=== PATIENT | male | born 1935 | race Caucasian/White ===

== ENCOUNTER 2016-11-21 08:55 | Emergency (ER) | payer MEDICARE ==
--- NOTE | ~2016-11-21 | CR181 ---
[facility] A Service of [facility] & [facility] RADIOLOGY TEXT RESULTS PATIENT: LISS JENSEN LOCATION: SED : 35 UNIT #: [id number] AGE: [address]: Elijah Ha MD SEX: M ORDER DR: [id number] [address] [address] [id number] E MR#: [id number] Acc #: [id number] NAME: LISS JENSEN : 1935 SEX: M STUDY DATE/TIME: 11/21/2016 10:12 UNIT: SED ROOM: STUDY DESCRIPTION: CR Lumbar Spine 2 or 3 Views Attending Physician: Elijah Ha M.D. Ordering Physician: Elijah Ha M.D. Primary Care Physician: Carlos Brar M.D. MEDICAL IMAGING REPORT This report is preliminary unless electronic signature is present. EXAM Lumbosacral spine HISTORY Low back pain for 3 months. FINDINGS AP lateral and spot views are submitted. Examination shows disc space narrowing at L3-4, 4-5 and 5-1. There is advanced facet disease throughout the lumbar spine but in particular at L4-5 and L5-S1. No fractures or malalignment is seen. There is dense atherosclerotic calcification of the aorta with an infrarenal abdominal aortic aneurysm measuring at least 5.9 cm. Review of the patient's ultrasound from 11/21/2016 suggests the aneurysm measures 4.4 cm in greatest diameter. CONCLUSION 1. 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 Advanced facet disease throughout the lumbar spine particularly at 4-5 and 5-1. 2. Infrarenal abdominal aortic aneurysm measures 5.9 cm on the plain radiographs however this may be not the most accurate way to assess the aneurysm. Recent ultrasound study suggests it measures about 4.4 cm. Dictated by... Simone Meeks M.D. THIS IS AN ELECTRONICALLY VERIFIED REPORT Simone Meeks M.D. at 11/21/2016 4:52 PM SOCORRO/jayden TD: 11/21/2016 10:47 JOB #: [id number] [facility] A Service of [facility] & [facility] RADIOLOGY TEXT RESULTS PATIENT: LISS JENSEN LOCATION: SED : 35 UNIT #: [id number] AGE: [address]: Elijah Ha MD SEX: M ORDER DR: MEDICAL IMAGING REPORT Page 1 of 1
[~2016-11-21 08:55] MED LIST changes: -ASPIRIN81 M2 PO; -AZO STANDARD97.5 MG PO; -BENAZEPRIL HCL40 MG PO; -DURAGESIC1 EAC1 TD; -FLOMAX0.4 M1 PO; -LIPITOR20 MG PO; -MACROBID100 M1 PO; -METOPROLOL SUCC50 MG PO; -MIRALAX17 GM PO; -NITROGLYGERIN0.4 MG SL; -NORCO 7.5-3251 EACH PO; -PEPCID COMPLET1 EAC1 PO; -PREPARATION H1 EAC1 TOP; -XANAX0.5 M1 PO; -ZOFRAN ODT4 M1 PO
[2016-11-21 09:37] LABS: URINE SOURCE CLEAN CATCH
[2016-11-21 09:40] LABS: URINE APPEARANCE CLEAR; URINE BILIRUBIN NEG (NEG); URINE BLOOD 2+ (NEG); URINE COLOR YELLOW; URINE GLUCOSE NEG (NORM); URINE KETONE NEG (NEG); URINE LEUKOCYTE ESTERASE NEG (NEG); URINE NITRATE NEG (NEG); URINE PH 5.5 (5-8); URINE PROTEIN NEG (NEG); URINE UROBILINOGEN 0.2 MG/DL (NORM)
[2016-11-21 09:41] LABS: MICRO INDICATED? YES
[2016-11-21 10:04] LABS: CULTURE INDICATED? NO; URINE BACTERIA NEG (NEG); URINE WBC 0-2 /[HPF] (0-5)
== END 2016-11-21 11:07 | disposition home or self-care (01) ==
LOC: SED 08:55
PROVIDERS: Emergency Medicine
DX: S39.012A Strain of muscle, fascia and tendon of lower back, initial encounter (principal); R31.9 Hematuria, unspecified; I10 Essential (primary) hypertension; E78.5 Hyperlipidemia, unspecified; Z95.1 Presence of aortocoronary bypass graft; Z88.8 Allergy status to other drugs, medicaments and biological substances; X58.XXXA Exposure to other specified factors, initial encounter; Y92.9 Unspecified place or not applicable
CPT/HCPCS: 72100; 81003; 99283

== ENCOUNTER → 2016-11-21 | Outpatient (CLI) | payer MEDICARE ==
[~2016-11-21] MED LIST: ASPIRIN PO; ASPIRIN81 M2 PO; AZO STANDARD97.5 MG PO; BENAZEPRIL HCL40 MG PO; DEXFOL PO; DURAGESIC1 EAC1 TD; FLOMAX0.4 M1 PO; LIPITOR PO; LIPITOR20 MG PO; LORTAB 7.5-5001 TAB PO; MACROBID100 M1 PO; METOPROLOL SUCC50 MG PO; MIRALAX17 GM PO; NITROGLYGERIN0.4 MG SL; NORCO 7.5-3251 EACH PO; NORVASC PO; PEPCID COMPLET1 EAC1 PO; PREPARATION H1 EAC1 TOP; TOPROL XL PO; VIT B-12 PO; VIT E PO; VITAMIN B; VITAMIN C PO; VITAMIN E; XANAX0.5 M1 PO; ZOFRAN ODT4 M1 PO
--- NOTE | ~2016-11-21 | US11 ---
[facility] A Service [facility] RADIOLOGY TEXT RESULTS PATIENT: LISS JENSEN LOCATION: [facility] : 35 UNIT #: [id number] AGE: [address]: Carlos Brar MD SEX: M ORDER DR: [id number] [place] [id number] P MR#: [id number] Acc #: [id number] NAME: LISS JENSEN : 1935 SEX: M STUDY DATE/TIME: 11/21/2016 8:16 UNIT: [facility] ROOM: STUDY DESCRIPTION: US Aorta Duplex Complete Attending Physician: Carlos Brar M.D. Referring Physician: Carlos Brar M.D. Ordering Physician: Carlos Brar M.D. Primary Care Physician: Carlos Brar M.D. MEDICAL IMAGING REPORT This report is preliminary unless electronic signature is present. EXAM Abdominal aorta ultrasound 11/21/2016 INDICATION Abdominal aortic aneurysm without rupture. Aneurysm for 15 years. No history of surgical intervention. Bypass surgery 10 years ago. TECHNIQUE Gama-scale color Doppler spectral analysis of the aorta was performed. COMPARISON 11/02/2015 FINDINGS There is an abdominal aortic aneurysm involving the distal aspect of the aorta. On long axis views it measures up to 4.4 cm maximum diameter which is essentially unchanged from the prior study. The remainder of the aorta demonstrates no evidence of aneurysmal dilatation. Visualized common iliac arteries unremarkable. Appropriate waveforms are present within the aorta. IMPRESSION 1. Aneurysmal dilatation of the distal abdominal aorta up to 4.4 cm which is unchanged from the prior 2015 study. The aneurysm measured up to about 3.4 cm on a more distant study dated 08/26/2010. Dictated by... Elijah Marie M.D. THIS IS AN ELECTRONICALLY VERIFIED REPORT Elijah Marie M.D. at 11/21/2016 11:51 AM [facility] A Service [facility] RADIOLOGY TEXT RESULTS PATIENT: LISS JENSEN LOCATION: [facility] #: [id number] : 35 UNIT #: [id number] AGE: [address]: Carlos Brar MD SEX: M ORDER DR: GAURANG/brenda TD: 11/21/2016 09:51 JOB #: [id number] MEDICAL IMAGING REPORT Page 1 of 1
== END | disposition home or self-care (01) ==
LOC: SGUS 07:50
DX: I71.4 Abdominal aortic aneurysm, without rupture (principal)
CPT/HCPCS: 93978

== ENCOUNTER 2017-01-14 10:17 | Emergency (ER) | payer MEDICARE, BC ==
--- NOTE | ~2017-01-14 | EKG ---
PATIENT: LISS JENSEN UNIT #: [id number] Ventricular Rate: 77 BPM Atrial Rate: 77 BPM P-R Interval: 160 ms QRS Duration: 100 ms Q-T Interval: 404 ms QTC Calculation(Bezet): 457 ms P [place]: 0 degrees Calculated R [place]: 36 degrees Calculated T [place]: 101 degrees Diagnosis Line: Sinus rhythm with occasional Premature ventricular Diagnosis Line: complexes Diagnosis Line: Possible Anterior infarct (cited on or before Diagnosis Line: 14-JAN-2017) Diagnosis Line: Abnormal ECG Diagnosis Line: When compared with ECG of 01-JUN-2009 21:45, Diagnosis Line: Premature ventricular complexes are now Present Diagnosis Line: Nonspecific T wave abnormality now evident in Diagnosis Line: Inferior leads Diagnosis Line: Confirmed by LAMONT ALEXANDER MD ([id number]) on Diagnosis Line: 01/18/2017 8:30:13 AM INTERPRETING MD: CATHERINE HUDDLESTON
--- NOTE | ~2017-01-14 | CT4 ---
[facility]. [facility] A Service of [facility] & [facility] RADIOLOGY TEXT RESULTS PATIENT: LISS JENSEN LOCATION: SED : 35 UNIT #: [id number] AGE: [address]: Franklin Collins MD SEX: M ORDER DR: [id number] [address] [address] [id number] E MR#: [id number] Acc #: [id number] NAME: LISS JENSEN : 1935 SEX: M STUDY DATE/TIME: 01/14/2017 11:45 UNIT: SED ROOM: STUDY DESCRIPTION: CT Abd and Pelv Wo Cont Attending Physician: Franklin Collins M.D. Ordering Physician: Franklin Collins M.D. Primary Care Physician: Carlos Brar M.D. MEDICAL IMAGING REPORT This report is preliminary unless electronic signature is present. EXAM CT abdomen and pelvis without IV contrast COMPARISON June 02, 2009. HISTORY 82-year-old male with the right groin pain and bilateral hip pain for [address] imaging abdomen and pelvis was performed without IV contrast. Coronal and sagittal reformats were constructed. Lack of IV contrast limits evaluation of adenopathy, vasculature and viscera. This CT exam was performed with one or more of the following radiation dose reduction techniques: automatic exposure control, adjustment of mA and/or kV according to patient size, and iterative reconstruction. FINDINGS Mild diffuse osteopenia. Severe degenerative facet disease L5-S1. There are new osseous sclerotic lesions. There is patchy sclerosis seen throughout the lumbar spine as well as at T12. There is contour irregularity along the anterior aspect of the sacrum and S1 and there is depression of the S1 endplate, possibly reflecting a pathologic fracture. Findings are most consistent with diffuse metastatic disease. There is also note of patchy sclerosis within the proximal femurs and the remainder of the bony pelvis. There is dextroscoliosis of the lumbar spine. There is moderate emphysema. Stable large bulla in the right lower lobe. Wall thickness may have increased slightly, perhaps superimposed inflammation or infection in the right lower lobe. There are multiple new STS. [facility] A Service of [facility] & [facility] RADIOLOGY TEXT RESULTS PATIENT: LISS JENSEN LOCATION: SED : 35 UNIT #: [id number] AGE: [address]: Franklin Collins MD SEX: M ORDER DR: pulmonary nodules, measuring 8 mm in the left lower lobe with a separate 9 mm nodule the left lower lobe. There are 3 other smaller nodules in the left lower lobe. These findings are most consistent with metastatic disease. There is another 4 mm nodule in the posterior basilar segment of the left lower lobe with 3 other nodules seen at the posterior basilar segment left lower lobe and a separate left lower lobe nodule measuring 5 mm. Largest nodule seen at the left lung measures up to 1.2 cm in the posterior basilar segment left lower lobe. Incompletely imaged subcentimeter nodular densities are seen in the right lower lobe. There is a small left pleural effusion, possibly malignant. Coronary artery calcifications. Apparent hiatal hernia which appears somewhat mass-like. Gastric or distal esophageal mass lesion cannot be excluded given findings elsewhere. This appears to be a change in appearance of the hiatal hernia from 2008. Prior cholecystectomy is noted. Unenhanced liver, spleen and adrenal glands are unremarkable. There is mild atrophy of the pancreas. There is exophytic cyst versus angiomyolipoma in the inferior pole of the right kidney measuring up to 1.7 cm. No hydronephrosis or hydroureter. No renal or ureteral calculi. Urinary bladder is under distended but the bladder wall appears diffusely thickened and there is adjacent fat stranding. Acute cystitis cannot be excluded. Prostate gland measures up to 4.2 cm transverse. There is distension of the seminal vesicles bilaterally. There is diffuse calcification of the abdominal aorta with extension to involve the celiac and superior mesenteric arteries as well as the origins of the renal arteries. There is a large infrarenal saccular abdominal aortic aneurysm measuring up to 4.6 cm, increased from a maximum of 3.7 cm in 2008. There is extensive colonic diverticulosis without convincing evidence of acute diverticulitis. No evidence of acute appendicitis. No bowel obstruction. No free fluid or pneumoperitoneum. There is a 7 mm right pelvic sidewall lymph node which was not seen previously, as well as a separate 8 mm left pelvic sidewall lymph node. Haziness of the fat adjacent to the urinary bladder may not be significantly changed from 2009. No adenopathy by CT size criteria. IMPRESSION 1. Diffuse, new, focal, patchy sclerosis of the imaged spine and of the bony pelvis and proximal femurs, highly suspicious for metastatic disease. There is questionable acute or subacute pathologic fracture of the S1 segment of the sacrum. 2. Hiatal hernia is again noted but at the gastroesophageal junction, there does appear to be new marked nonspecific thickening. This could certainly represent fluid distension of the distal esophagus or the herniated stomach but malignancy in this location cannot be excluded. There are multiple pulmonary nodules in the left lower lobe, new from comparison, largest which measures up to 1.2 cm, most consistent with metastatic disease. There is a small left pleural effusion, possibly malignant. 3. Emphysema. There is a bulla in the right lower lobe, grossly STS. [facility] A Service of [facility] RADIOLOGY TEXT RESULTS PATIENT: LISS JENSEN [place] [facility] [place] 35 UNIT #: [id number] AGE: [address]: Franklin Collins MD SEX: M ORDER DR: stable in size from 2008 with increased mild diffuse wall thickening, perhaps reflecting superimposed inflammation. There are few incompletely image nodules which are subcentimeter in size in the right lower lobe, also concerning for metastatic disease. 4. Extensive colonic diverticulosis without evidence of acute diverticulitis. 5. Enlarging infrarenal abdominal aortic aneurysm measuring up to 4.6 cm. At the very least, imaging followup is recommended in 6-12 months. Non-emergent vascular surgical consultation could be considered. 6. Diffuse arterial calcification in the abdomen and pelvis. 7. Mild fat stranding adjacent to the urinary bladder which appears mildly thickened. An acute cystitis cannot entirely be excluded. This may simply be due to under distension. There are prominent pelvic sidewall lymph nodes bilaterally which appear new, 1 of which measures up to 8 mm, the other which measures up to 7 mm. Metastatic disease cannot be excluded. Consider correlation with PSA given the location of the nodes. Dictated by... Jose Angel Woo M.D. THIS IS AN ELECTRONICALLY VERIFIED REPORT Jose Angel Woo M.D. at 01/23/2017 8:11 AM BLM/pcl TD: 01/14/2017 13:55 JOB #: [id number] MEDICAL IMAGING REPORT Page 1 of 1
[2017-01-14] MEDS ORDERED: MACROBID100 M1 PO (10:27)
[2017-01-14] MEDS ORDERED: METOPROLOL SUCC50 MG PO (10:28)
[2017-01-14] MEDS ORDERED: LIPITOR20 MG PO (10:28)
[2017-01-14] MEDS ORDERED: BENAZEPRIL HCL40 MG PO (10:28)
[2017-01-14] MEDS ORDERED: ASPIRIN81 M2 PO (10:29)
[2017-01-14 11:22] LABS: BASOPHIL% 0.6 % (0-2.5); EOSINOPHIL% 0.7 % (0.0-7.0); HEMOGLOBIN 10.5 gm/dL (13.0-16.0); LYMPHOCYTE# 0.6 X10e3 (1.0-3.5); LYMPHOCYTE% 9.7 % (17.0-45.0); MEAN CELL VOLUME 84.3 FL (83-96); MEAN CORPUSCULAR HEMOGLOBIN 27.7 PG (28-34); MEAN CORPUSCULAR HGB CONC 32.9 g/dL (30-36); MEAN PLATELET VOLUME 7.3 FL (6.5-11.5); MONOCYTE# 0.6 X10e3 (0-1.0); MONOCYTE% 9.9 % (3.0-12.0); NEUTROPHIL# 5.1 X10e3 (1.5-7.1); NEUTROPHIL% 79.1 % (40-75); PLATELET COUNT 213 X10e3 (140-420); RED CELL DISTRIBUTION WIDTH 15.2 % (11.0-15.5); WHITE BLOOD COUNT 6.5 X10e3 (4.0-10.5)
[2017-01-14 11:28] LABS: DIFF IND NO
[2017-01-14 11:31] LABS: URINE SOURCE CLEAN CATCH
[2017-01-14 11:33] LABS: URINE APPEARANCE CLEAR; URINE BLOOD 3+ (NEG); URINE COLOR AMBER; URINE GLUCOSE NEG (NORM); URINE KETONE NEG (NEG); URINE LEUKOCYTE ESTERASE NEG (NEG); URINE NITRATE NEG (NEG); URINE PROTEIN 1+ (NEG); URINE SPECIFIC GRAVITY 1.025 (1.003-1.035)
[2017-01-14 11:39] LABS: BUN/CREATININE RATIO 17.69; CALCIUM SERUM 8.3 mg/dL (8.4-10.2); CREATININE SERUM 1.3 mg/dL (0.6-1.4); GLOM FILT RATE Estimated 50.8 mL/min (>60); POTASSIUM 3.7 mmol/L (3.5-5.1)
[2017-01-14 11:39] LABS: MICRO INDICATED? YES; URINE BILIRUBIN NEG (NEG)
[2017-01-14 11:45] LABS: CULTURE INDICATED? NO; URINE BACTERIA NEG (NEG)
[2017-01-14 12:43] LABS: POC - CKMB 1.5 ng/mL (0.0-7.9); POC - TROPONIN <0.05 ng/mL (<=0.05)
== END 2017-01-14 14:07 | disposition home or self-care (01) ==
LOC: SED 10:17
PROVIDERS: Emergency Medicine
DX: S32.10XA Unspecified fracture of sacrum, initial encounter for closed fracture (principal); R31.9 Hematuria, unspecified; I25.10 Atherosclerotic heart disease of native coronary artery without angina pectoris; Z91.013 Allergy to seafood; Z79.82 Long term (current) use of aspirin; Z79.899 Other long term (current) drug therapy; X58.XXXA Exposure to other specified factors, initial encounter; Y92.9 Unspecified place or not applicable
CPT/HCPCS: 36415; 74176; 80048; 81003; 82553; 84484; 85025; 93005; 99284

== ENCOUNTER → 2017-01-17 | Outpatient (CLI) | payer MEDICARE ==
[~2017-01-17] MED LIST changes: +ASPIRIN81 M2 PO; +AZO STANDARD97.5 MG PO; +BENAZEPRIL HCL40 MG PO; +DURAGESIC1 EAC1 TD; +FLOMAX0.4 M1 PO; +LIPITOR20 MG PO; +MACROBID100 M1 PO; +METOPROLOL SUCC50 MG PO; +MIRALAX17 GM PO; +NITROGLYGERIN0.4 MG SL; +NORCO 7.5-3251 EACH PO; +PEPCID COMPLET1 EAC1 PO; +PREPARATION H1 EAC1 TOP; +XANAX0.5 M1 PO; +ZOFRAN ODT4 M1 PO
--- NOTE | ~2017-01-17 | CT2 ---
[facility]. [facility] A Service of [facility] RADIOLOGY TEXT RESULTS PATIENT: LISS JENSEN LOCATION: [facility] : 35 UNIT #: [id number] AGE: [address]: Juanito Pineda MD SEX: M ORDER DR: [id number] [place] [address] [id number] O MR#: [id number] Acc #: [id number] NAME: LISS JENSEN : 1935 SEX: M STUDY DATE/TIME: 01/17/2017 8:02 UNIT: [facility] ROOM: STUDY DESCRIPTION: CT Abd and Pelv W Cont Attending Physician: Juanito Pineda M.D. Referring Physician: Juanito Pineda M.D. Ordering Physician: Juanito Pineda M.D. Primary Care Physician: Carlos Brar M.D. MEDICAL IMAGING REPORT This report is preliminary unless electronic signature is present. EXAM CT abdomen and pelvis with contrast. INDICATION Restaging bone and lung cancer. Observation for extent of disease and metastatic disease. PROCEDURE Contrast-enhanced CT abdomen and pelvis. This CT exam was performed with one or more of the following radiation dose reduction techniques: automatic exposure control, adjustment of mA and/or kV according to patient size, and iterative reconstruction. COMPARISON 01/14/2017 FINDINGS Refer to the separately dictated chest CT for thoracic findings. Small to moderate sized hiatal hernia. No liver or splenic lesion. Small bilateral renal cysts. A cyst at the lower pole of the right kidney measures 1.6 cm. Adrenal glands and pancreas unremarkable. Previous cholecystectomy. There is extensive colonic diverticulosis without definitive evidence for complication. Moderate colonic stool. The bowel loops are nondilated. Infrarenal abdominal aortic aneurysm measures up to 4.5 cm. PELVIS WITH CONTRAST: Prostate gland is normal in size. There is some STS. [facility] A Service of [facility] RADIOLOGY TEXT RESULTS PATIENT: LISS JENSEN LOCATION: [facility] : 35 UNIT #: [id number] AGE: [address]: Juanito Pineda MD SEX: M ORDER DR: nodularity projecting into the bladder base measuring 3.2 cm. This probably represents protrusion of the prostate gland but a true bladder mass is difficult to exclude. There is also nonspecific high-attenuation seen in the distal right ureter. This was not seen on the patient's unenhanced CT from 01/14/2017. Mildly prominent 1.3 cm, right external iliac lymph node. Scattered areas of sclerosis throughout the osseous structures. Index region in the L5 vertebral body measures 3.2 cm. IMPRESSION 1. Scattered areas of bone sclerosis suspicious for bony metastatic disease. 2. The prostate gland is normal in size but appears to indent the bladder base and there is some nodularity seen at the base of the bladder that probably represents extension of the prostate gland but cannot exclude a bladder mass. Direct visualization may be warranted. 3. Focal high attenuation in the distal right ureter not seen on the patient's previous unenhanced CT. This could represent some tiny stones or sediment. It could also represent focal enhancement. This possibility would be better evaluated with a dedicated renal protocol CT, including multiphase acquisition and delayed imaging through the ureters. 4. Nonspecific mildly prominent right external iliac lymph node. Otherwise, no convincing evidence for metastatic disease. 5. Refer to the separately dictated CT of the chest and other incidental findings are detailed above. Dictated by... Lucas Dillon M.D. THIS IS AN ELECTRONICALLY VERIFIED REPORT Lucas Dillon M.D. at 01/18/2017 2:02 PM POLLY/jerry TD: 01/17/2017 14:28 JOB #: [id number] MEDICAL IMAGING REPORT Page 1 of 1
--- NOTE | ~2017-01-17 | CT55 ---
[facility] A Service of [facility] & [facility] RADIOLOGY TEXT RESULTS PATIENT: LISS JENSEN LOCATION: [facility] : 35 UNIT #: [id number] AGE: [address]: Juanito Pineda MD SEX: M ORDER DR: [id number] [place] [address] [id number] O MR#: [id number] Acc #: [id number] NAME: LISS JENSEN : 1935 SEX: M STUDY DATE/TIME: 01/17/2017 9:26 UNIT: [facility] ROOM: STUDY DESCRIPTION: CT Chest W Con Attending Physician: Juanito Pineda M.D. Referring Physician: Juanito Pineda M.D. Ordering Physician: Juanito Pineda M.D. Primary Care Physician: Carlos Brar M.D. MEDICAL IMAGING REPORT This report is preliminary unless electronic signature is present. EXAM CT chest INDICATIONS Lung cancer staging diagnosed 2 days ago. Observation for extent of disease and metastatic disease. PROCEDURE Contrast-enhanced CT of the chest. This CT exam was performed with one or more of the following radiation dose reduction techniques: automatic control, adjustment of mA and/or kV according to patient size, and iterative reconstruction. COMPARISON None. FINDINGS ABDOMEN WITH CONTRAST: Emphysema. Scattered pleural-based calcifications, particularly in the right hemithorax. There are multiple scattered pulmonary nodules in both lungs. An index nodule in the right upper lobe measures 1.1 cm. An index nodule in the left lower lobe measures 1.2 cm. Scattered areas of parenchymal scarring. Previous CABG. Coronary artery calcification. There is a prominent pretracheal node short axis dimension 1.9 cm. A few other mildly prominent mediastinal nodes. There are scattered poorly defined sclerotic lesions throughout the osseous structures. There is an expansile lesion, posterolateral right eighth rib that measures 3.6 x 1.6 cm. There is a nondisplaced fracture of the lateral right ninth rib associated with a sclerotic lesion. No thoracic vertebral body compression. IMPRESSION 1. Multiple bilateral pulmonary nodules involving all lobes. Most in keeping with pulmonary metastatic disease. This could be metastatic STS. [facility] A Service of [facility] & [facility] RADIOLOGY TEXT RESULTS PATIENT: LISS JENSEN LOCATION: [facility] : 35 UNIT #: [id number] AGE: [address]: Juanito Pineda MD SEX: M ORDER DR: from primary lung cancer or distant metastases. 2. A few prominent mediastinal lymph nodes suspicious for mediastinal adenopathy. 3. Multiple sclerotic bone lesions with index lesions detailed above including a likely nondisplaced pathologic fracture of the lateral right ninth rib. Dictated by... Lucas Dillon M.D. THIS IS AN ELECTRONICALLY VERIFIED REPORT Lucas Dillon M.D. at 01/18/2017 2:02 PM POLLY/maryanne TD: 01/17/2017 15:16 JOB #: [id number] MEDICAL IMAGING REPORT Page 1 of 1
[2017-01-17 07:40] LABS: POC - CREATININE 1.41 mg/dL (0.64-1.27)
== END | disposition home or self-care (01) ==
LOC: SCT 07:25
PROVIDERS: Internal Medicine Medical Oncology
DX: C79.51 Secondary malignant neoplasm of bone (principal); C34.90 Malignant neoplasm of unspecified part of unspecified bronchus or lung
CPT/HCPCS: 71260; 74177; 82565; Q9967

== ENCOUNTER → 2017-03-08 | Outpatient (CLI) | payer MEDICARE, BC ==
--- NOTE | ~2017-03-08 | CT55 ---
[facility] A Service of [facility] & [facility] RADIOLOGY TEXT RESULTS PATIENT: LISS JENSEN LOCATION: [facility] : 35 UNIT #: [id number] AGE: [address]: Juanito Pineda MD SEX: M ORDER DR: [id number] [address] [address] [id number] O MR#: [id number] Acc #: [id number] NAME: LISS JENSEN : 1935 SEX: M STUDY DATE/TIME: 03/08/2017 08:36 UNIT: [facility] ROOM: STUDY DESCRIPTION: CT Chest W Con Attending Physician: Juanito Pineda M.D. Referring Physician: Juanito Pineda M.D. Ordering Physician: Juanito Pineda M.D. Primary Care Physician: Carlos Brar M.D. MEDICAL IMAGING REPORT This report is preliminary unless electronic signature is present. EXAM CT chest with contrast 03/08/2017 0836 hours HISTORY Patient for followup of bilateral pulmonary parenchymal nodules seen on CT chest 01/17/2017. Patient complains of new onset shortness of air for 3 days. Prior history of lung carcinoma. TECHNIQUE Dynamic helical CT images were obtained from the lung apices through the adrenal glands. Sagittal and coronal reconstructions were performed. Contrast was Isovue-370 70 mL IV. Total exam DLP 668 mGy-cm. This CT exam was performed with one or more of the following radiation dose reduction techniques: automatic control, adjustment of mA and/or kV according to patient size, and iterative reconstruction. FINDINGS Images through the thoracic inlet demonstrate no thyroid mass or supraclavicular adenopathy. Images through the chest demonstrate mildly enlarged mediastinal and hilar lymph nodes which are stable to slightly increased. There is a high right superior mediastinal node posterior to the subclavian artery and lateral to the esophagus on image 12 measuring 1.2 cm previously 4 mm. The precarinal lymph node is enlarged. It measures up to 1.8 x 3.3 cm previously 1.9 x 3.1 cm unchanged. There are enlarged prevascular, right hilar nodes all unchanged. There is no pericardial fluid. There is a stable hiatal hernia. Patient has developed a moderately large left and small to moderate right pleural effusions. Fluid tracks into the major fissure on the right. There is underlying emphysematous change. There are bilateral well-circumscribed noncalcified pulmonary parenchymal nodules unchanged in STS. [facility] A Service of [facility] RADIOLOGY TEXT RESULTS PATIENT: LISS JENSEN LOCATION: [facility] : 35 UNIT #: [id number] AGE: [address]: Juanito Pineda MD SEX: M ORDER DR: size and number from 01/17/2017 most consistent with metastatic disease to the lung. There is some interstitial prominence at the right lung base increased from prior study. There is thickening of the wall surrounding a preexisting air filled bleb or cavity at the right lung base with wall thickness 1.3 cm previously 0.5 cm. This could be infectious or malignant. There is overall increase in interstitial change particularly in the right lower lobe. This could represent asymmetric edema. Lymphangitic tumor is a consideration. Limited views through the upper abdomen demonstrate no definite liver lesion. There is stable thickening of the left adrenal gland. Bone window images demonstrate diffuse sclerotic bone changes of the thoracic spine slightly increased in the mid thoracic levels. There are bilateral sclerotic bone lesions consistent with metastatic disease to bone. No definite acute fracture or impending fracture. IMPRESSION 1. There are bilateral well-circumscribed noncalcified pulmonary parenchymal nodules diffusely most consistent with metastatic disease not appreciably changed from 01/17/2017. 2. Interval development of bilateral pleural effusions left greater than right. 3. There is new interstitial prominence in the right lower lobe as well as thickening surrounding a previous bleb or cavity at the right lung base. Wall thickening measures 1.3 cm previously 0.5 cm. This could represent malignant change or infectious change. No fluid is seen in the cavity. Malignant change is therefore favored. 4. There are small mediastinal and hilar lymph nodes which are slightly increased in size superiorly but unchanged in the precarinal region. 5. Diffuse sclerotic changes in the spine and ribs consistent with metastatic disease to bone. There is slightly more sclerotic change in the mid thoracic spine than on 01/17/2017 suggesting slight interval progression. Dictated by... Anushka Heart M.D. THIS IS AN ELECTRONICALLY VERIFIED REPORT Anushka Heart M.D. at 03/08/2017 8:27 PM YAHAIRA/maryanne TD: 03/08/2017 17:01 JOB #: [id number] MEDICAL IMAGING REPORT Page 1 of 1
[2017-03-08 08:51] LABS: POC - CREATININE 1.33 mg/dL (0.64-1.27)
== END | disposition home or self-care (01) ==
LOC: SCT 08:09
PROVIDERS: Internal Medicine Medical Oncology
DX: R91.8 Other nonspecific abnormal finding of lung field (principal); J90 Pleural effusion, not elsewhere classified; M89.9 Disorder of bone, unspecified
CPT/HCPCS: 71260; 82565; Q9967

== ENCOUNTER → 2017-03-13 | Outpatient (CLI) | payer MEDICARE ==
--- NOTE | ~2017-03-13 | CR71 ---
[facility] A Service of [facility] RADIOLOGY TEXT RESULTS PATIENT: LISS JENSEN [facility] UNIT #: [id number] AGE: [address]: Juanito Pineda MD SEX: M ORDER DR: [id number] [facility] [address] [place], [place] [address] [id number] O MR#: [id number] Acc #: [id number] NAME: LISS JENSEN : 1935 SEX: M STUDY DATE/TIME: 03/13/2017 8:20 UNIT: [facility] ROOM: STUDY DESCRIPTION: CR Chest Single View Attending Physician: Juanito Pineda M.D. Referring Physician: Juanito Pineda M.D. Ordering Physician: Luis Daniel Diaz M.D. Primary Care Physician: Carlos Brar M.D. MEDICAL IMAGING REPORT This report is preliminary unless electronic signature is present EXAM Portable chest, 1 view, 03/13/2017. HISTORY Status post left thoracentesis for left pleural effusion. FINDINGS Resolved left effusion and no pneumothorax. Chronic changes in the right mid and lower lung and pulmonary hyperexpansion suggesting COPD redemonstrated. Prior sternotomy and bypass. Again, no pneumothorax. Dictated by... Luis Daniel Diaz M.D. THIS IS AN ELECTRONICALLY VERIFIED REPORT Luis Daniel Diaz M.D. at 03/17/2017 4:54 PM TEV/tmw TD: 03/13/2017 11:42 JOB #: [id number] MEDICAL IMAGING REPORT Page 1 of 1 COPY
--- NOTE | ~2017-03-13 | XA203 ---
[facility] A Service of [facility] RADIOLOGY TEXT RESULTS PATIENT: LISS JENSEN LOCATION: [facility] : 35 UNIT #: [id number] AGE: [address]: Juanito Pineda MD SEX: M ORDER DR: [id number] [facility] [address]. [place], [place] [address] [id number] O MR#: [id number] Acc #: [id number] NAME: LISS JENSEN : 1935 SEX: M STUDY DATE/TIME: 03/13/2017 7:53 UNIT: [facility] ROOM: STUDY DESCRIPTION: XA Thoracentesis Attending Physician: Juanito Pineda M.D. Referring Physician: Juanito Pineda M.D. Ordering Physician: Juanito Pineda M.D. Primary Care Physician: Carlos Brar M.D. MEDICAL IMAGING REPORT This report is preliminary unless electronic signature is present EXAM Ultrasound guided left thoracentesis. HISTORY Left pleural effusion. PROCEDURE Informed consent was obtained. A skin site was selected with ultrasound guidance and marked, sterilely prepped and draped and locally anesthetized. Left thoracentesis was performed with a RhinoCyteeh needle catheter and 1100 mL of fluid was removed and sent for testing as requested. There were no complications. IMPRESSION Successful ultrasound guided left thoracentesis with removal of 1100 mL of fluid without complication. Dictated by... Luis Daniel Diaz M.D. THIS IS AN ELECTRONICALLY VERIFIED REPORT Luis Daniel Diaz M.D. at 03/17/2017 4:52 PM TEV/pc TD: 03/14/2017 12:05 JOB #: [id number] MEDICAL IMAGING REPORT Page 1 of 1 COPY
[2017-03-13 07:37] LABS: HEMATOCRIT 33.2 % (38.0-50.0); HEMOGLOBIN 10.9 gm/dL (13.0-16.0); MEAN CELL VOLUME 84.8 FL (83-96); MEAN CORPUSCULAR HEMOGLOBIN 27.8 PG (28-34); MEAN CORPUSCULAR HGB CONC 32.8 g/dL (30-36); MEAN PLATELET VOLUME 6.7 FL (6.5-11.5); RED BLOOD COUNT 3.92 X10e (3.90-5.60); RED CELL DISTRIBUTION WIDTH 17.4 % (11.0-15.5); WHITE BLOOD COUNT 6.1 X10e3 (4.0-10.5)
[2017-03-13 07:51] LABS: PARTIAL THROMBOPLASTIN TIME 24.5 SECONDS (23.5-31.3); PROTHROMBIN TIME (PATIENT) 11.1 SECONDS (10.0-11.7)
== END | disposition home or self-care (01) ==
LOC: CIVR 07:03
PROVIDERS: Internal Medicine Medical Oncology
PROC: 0W9B3ZZ Drainage of Left Pleural Cavity, Percutaneous Approach (ICD-10-PCS; principal; 2017-03-13)
DX: J90 Pleural effusion, not elsewhere classified (principal); J98.4 Other disorders of lung; Z98.890 Other specified postprocedural states
CPT/HCPCS: 36415; 71010; 85027; 85610; 85730; 87070; 87205; 88108; 88305

== ENCOUNTER 2017-04-16 00:18 | Emergency (ER) | payer MEDICARE ==
[~2017-04-16] VITALS: Ht 180.3 cm; Wt 77.1 kg
--- NOTE | ~2017-04-16 | CR72 ---
[facility] A Service of [facility] RADIOLOGY TEXT RESULTS PATIENT: LISS JENSEN LOCATION: SED : 35 UNIT #: [id number] AGE: [address]: Naun Rice DO SEX: M ORDER DR: [id number] [place] [address] [id number] E MR#: [id number] Acc #: [id number] NAME: LISS JENSEN : 1935 SEX: M STUDY DATE/TIME: 04/16/2017 1:30 UNIT: SED ROOM: STUDY DESCRIPTION: CR Chest Single View Portable Attending Physician: Naun Rice D.O.. Ordering Physician: Naun Rice D.O.. Primary Care Physician: Carlos Brar M.D. MEDICAL IMAGING REPORT This report is preliminary unless electronic signature is present. EXAM Chest x-ray, 04/16/2017 HISTORY 82-year-old male with history of metastatic lung cancer presenting to the ED complaining of 1-month history of worsening shortness of air. He also notes diaphoresis and some abdomen pain. TECHNIQUE AP portable upright chest x-ray. COMPARISON CT chest 03/08/2017. Chest x-ray 03/23/2017. FINDINGS There has been very little change since the previous study of 03/23/2017. Scattered pulmonary nodularity in this patient with known metastatic lung cancer. Small bilateral pleural effusion, slightly enlarged on the left. Chronic calcific pleural thickening surrounding right mid and lower lung. Pulmonary emphysema. Prior CABG surgery. IMPRESSION Pulmonary the semen with scattered pulmonary nodularity and small bilateral pleural effusions, unchanged since 03/23/2017. Dictated by... Diego Hawkins M.D. THIS IS AN ELECTRONICALLY VERIFIED REPORT [facility] A Service [facility] RADIOLOGY TEXT RESULTS PATIENT: LISS JENSEN LOCATION: SED : 35 UNIT #: [id number] AGE: [address]: Naun Rice DO SEX: M ORDER DR: Diego Hawkins M.D. at 04/17/2017 6:02 AM KEKE/harriett TD: 04/17/2017 02:08 JOB #: [id number] MEDICAL IMAGING REPORT Page 1 of 1
--- NOTE | ~2017-04-16 | EKG ---
PATIENT: LISS JENSEN UNIT #: [id number] Ventricular Rate: 66 BPM Atrial Rate: 66 BPM P-R Interval: 142 ms QRS Duration: 96 ms Q-T Interval: 420 ms QTC Calculation(Bezet): 440 ms P [place]: 15 degrees Calculated R [place]: 23 degrees Calculated T [place]: -6 degrees Diagnosis Line: Normal sinus rhythm Diagnosis Line: Cannot rule out Anterior infarct (cited on or Diagnosis Line: before 14-JAN-2017) Diagnosis Line: Abnormal ECG Diagnosis Line: When compared with ECG of 14-JAN-2017 11:53, Diagnosis Line: Premature ventricular complexes are no longer Diagnosis Line: Present Diagnosis Line: Confirmed by LAMONT ALEXANDER MD ([id number]) on Diagnosis Line: 04/19/2017 11:17:49 AM INTERPRETING MD: CATHERINE HUDDLESTON
[~2017-04-16 00:18] MED LIST changes: -AZO STANDARD97.5 MG PO; -DURAGESIC1 EAC1 TD; -FLOMAX0.4 M1 PO; -MIRALAX17 GM PO; -NITROGLYGERIN0.4 MG SL; -NORCO 7.5-3251 EACH PO; -PEPCID COMPLET1 EAC1 PO; -PREPARATION H1 EAC1 TOP; -XANAX0.5 M1 PO; -ZOFRAN ODT4 M1 PO
[2017-04-16] MEDS ORDERED: XANAX0.5 M1 PO (00:26)
[2017-04-16] MEDS ORDERED: FLOMAX0.4 M1 PO (00:26)
[2017-04-16] MEDS ORDERED: ZOFRAN ODT4 M1 PO (00:27)
[2017-04-16] MEDS ORDERED: DURAGESIC1 EAC1 TD (00:27)
[2017-04-16] MEDS ORDERED: PEPCID COMPLET1 EAC1 PO (00:28)
[2017-04-16] MEDS ORDERED: NORCO 7.5-3251 EACH PO (00:28)
[2017-04-16] MEDS ORDERED: NITROGLYGERIN0.4 MG SL (00:28)
[2017-04-16] MEDS ORDERED: AZO STANDARD97.5 MG PO (00:29)
[2017-04-16] MEDS ORDERED: PREPARATION H1 EAC1 TOP (00:29)
[2017-04-16] MEDS ORDERED: MIRALAX17 GM PO (00:30)
[2017-04-16 01:44] LABS: BASOPHIL% 0.4 % (0-2.5); EOSINOPHIL# 0.2 X10e3 (0-0.7); HEMATOCRIT 32.7 % (38.0-50.0); HEMOGLOBIN 10.7 gm/dL (13.0-16.0); LYMPHOCYTE% 15.1 % (17.0-45.0); MEAN CELL VOLUME 83.5 FL (83-96); MEAN CORPUSCULAR HEMOGLOBIN 27.3 PG (28-34); MEAN CORPUSCULAR HGB CONC 32.7 g/dL (30-36); MEAN PLATELET VOLUME 7.2 FL (6.5-11.5); MONOCYTE# 0.6 X10e3 (0-1.0); MONOCYTE% 9.2 % (3.0-12.0); NEUTROPHIL% 72.3 % (40-75); PLATELET COUNT 230 X10e3 (140-420); RED BLOOD COUNT 3.91 X10e (3.90-5.60); RED CELL DISTRIBUTION WIDTH 17.4 % (11.0-15.5); WHITE BLOOD COUNT 6.9 X10e3 (4.0-10.5)
[2017-04-16 01:47] LABS: DIFF IND NO
[2017-04-16 01:49] LABS: POC - CKMB 1.7 ng/mL (0.0-7.9); POC - MYOGLOBIN 96.3 ng/mL (0.0-169.0); POC - TROPONIN <0.05 ng/mL (<=0.05)
[2017-04-16 01:53] LABS: INR 1.1
[2017-04-16 01:59] LABS: ALBUMIN SERUM 3.6 g/dL (3.5-5.0); BILIRUBIN, DIRECT 0.1 mg/dL (0.0-0.2); BILIRUBIN,INDIRECT 0.4 mg/dL (0.0-0.9); BILIRUBIN,TOTAL 0.5 mg/dL (0.2-2.0); CALCIUM SERUM 7.7 mg/dL (8.4-10.2); GLOM FILT RATE Estimated 69.8 mL/min (>60); POTASSIUM 4.3 mmol/L (3.5-5.1)
[2017-04-16 02:01] LABS: PARTIAL THROMBOPLASTIN TIME 23.5 SECONDS (25.6-38.1)
[2017-04-16 03:31] LABS: POC - CKMB 1.7 ng/mL (0.0-7.9); POC - MYOGLOBIN 80.2 ng/mL (0.0-169.0); POC - TROPONIN <0.05 ng/mL (<=0.05)
== END 2017-04-16 03:58 | disposition home or self-care (01) ==
LOC: SED 00:18
PROVIDERS: Emergency Medicine
DX: J43.9 Emphysema, unspecified (principal); C34.90 Malignant neoplasm of unspecified part of unspecified bronchus or lung; E83.51 Hypocalcemia; Z86.79 Personal history of other diseases of the circulatory system; Z95.1 Presence of aortocoronary bypass graft; Z91.013 Allergy to seafood; Z79.899 Other long term (current) drug therapy
CPT/HCPCS: 36415; 71010; 80048; 80076; 82553; 83874; 84484; 85025; 85610; 85730; 87040; 93005; 99285